=== PATIENT | male | born 1965 | race Caucasian/White ===

== ENCOUNTER 2022-05-29 11:23 | Outpatient (CLI) | payer OTHER | END 2022-05-29 11:24 | disposition home or self-care (01) | LOC: NAV RAD 11:23 | PROVIDERS: ATTEND Family Medicine | DX: Z02.71 Encounter for disability determination (principal); G89.4 Chronic pain syndrome; M47.816 Spondylosis without myelopathy or radiculopathy, lumbar region; S32.059A Unspecified fracture of fifth lumbar vertebra, initial encounter for closed fracture | CPT/HCPCS: 71046; 72100 ==